=== PATIENT | male | born 1975 | race American Indian/Alaskan Native ===

== ENCOUNTER 2016-06-08 08:42 | Outpatient (CLI) | payer MEDICARE ==
--- NOTE | 2016-06-08 11:20 | Fluoroscopy Report ---
Modified barium swallow: History: Dysphagia. Findings: There was no obstruction to the flow of liquid thin barium and semisolid food through the cervical esophagus. No definite aspiration was noted. Additional findings would be provided by speech therapist.
== END 2016-06-08 08:43 | disposition home or self-care (01) ==
LOC: PT 08:42
PROVIDERS: ATTEND Internal Medicine
DX: G80.9 Cerebral palsy, unspecified (principal); R13.10 Dysphagia, unspecified
CPT/HCPCS: 74230; 92611; G8996; G8997; G8998